=== PATIENT | female | born 1945 | race Two or more races ===

== ENCOUNTER 2022-11-24 10:33 | Outpatient (CLI) | payer OTHER ==
[~2022-11-24 10:33] MED LIST: SPIRIVA
== END 2022-11-24 10:35 | disposition home or self-care (01) ==
LOC: SONOGRAMA 10:33
PROVIDERS: ATTEND Pathology Anatomic Pathology & Clinical Pathology
DX: D44.0 Neoplasm of uncertain behavior of thyroid gland (principal); D34 Benign neoplasm of thyroid gland; E07.9 Disorder of thyroid, unspecified; E04.9 Nontoxic goiter, unspecified

== ENCOUNTER 2023-07-23 10:57 | Outpatient (CLI) | payer OTHER | END 2023-07-23 11:01 | disposition home or self-care (01) | LOC: SONOGRAMA 10:57 | PROVIDERS: ATTEND Pathology Anatomic Pathology & Clinical Pathology | DX: D44.0 Neoplasm of uncertain behavior of thyroid gland (principal); E04.1 Nontoxic single thyroid nodule ==